=== PATIENT | female | born 1985 | race Caucasian/White ===

== ENCOUNTER 2020-01-28 11:17 | Outpatient (CLI) | payer OTHER, SELFPAY ==
--- NOTE | ~2020-01-28 | XR_ITS ---
EXAMINATION: XR chest 2V 01/28/2020 11:39 INDICATION: Cough, fever and body aches. Shortness of breath. PROCEDURE: 2 view chest COMPARISON: No prior studies for comparison. FINDINGS: The lungs are clear. The cardiomediastinal silhouette is within normal limits. There are no pleural effusions. There is no pneumothorax suspected. IMPRESSION: 1: NO ACUTE CARDIOPULMONARY DISEASE. Reviewed, dictated and finalized at location A.
[2020-01-28 11:34] LABS: Hematocrit 40.2 % (35.0-49.0); Mean Corpuscular HGB Conc 34.8 g/dL (32.0-36.0); Mean Corpuscular Hemoglobin 33.7 pg (27.0-31.0); Mean Corpuscular Volume 96.9 fL (78.0-102.0); Platelet Count Result 117 K/mm3 (150-420); Red Blood Count 4.15 M/mm3 (4.20-5.40); White Blood Count 2.7 K/mm3 (4.8-10.8)
[2020-01-28 11:51] LABS: Influenza Control Valid (Valid)
[2020-01-28 12:01] LABS: Neutrophils Percent Manual 78 % (46-73); Total Cells Counted 100
[2020-01-28 12:02] LABS: Band Neutrophils Percent 4 % (0-6); Basophils Percent Manual 0 % (0-1); Eosinophils Percent Manual 4 % (1-6); Lymphocytes Absolute Manual 0.24 K/mm3 (1.1-4.5); Lymphocytes Percent Manual 9 % (18-44); Monocytes Absolute Manual 0.13 K/mm3 (0.1-0.90); Monocytes Percent Manual 5 % (3-9); Neutrophils Absolute Manual 2.21 K/mm3 (1.7-7.2)
== END 2020-01-28 11:18 | disposition home or self-care (01) ==
PROVIDERS: PCP Internal Medicine; Visit Provider Internal Medicine
DX: R05 Cough (principal); R50.9 Fever, unspecified; R52 Pain, unspecified
CPT/HCPCS: 36415; 71046; 85025; 87804

== ENCOUNTER 2020-06-10 16:59 | Outpatient (RCR) | payer OTHER, SELFPAY ==
--- NOTE | 2020-06-15 13:03 | PTOPEVAL ---
Thank you for referring Laurel Avendaño to [facility]. Please review, sign, date and return this plan of care SHARLA. I agree with and certify that the following plan of care is medically necessary. Referring Physician Date Admitting Provider: Attending Provider: Rayo Melvin MD Referring Provider: *PT Outpatient Evaluation Start: 06/10/20 16:59 Freq: Status: Active Protocol: Document 06/10/20 17:02 VIOLETA (Rec: 06/10/20 17:37 [email or web address] [email or web address]) Therapy Assessment Status Assessment Status Assessment Status Evaluation Evaluation Information Problem Diagnosis low back pain Onset 05/26/20 Subjective Information Pt. reports that 2 weeks ago Query Text:As Reported By Patient/ she bent to package pick up her phone Family and noted pain. 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 She states that over the past 3 days she has felt improvement. She states that she enjoys working out and has avoided working out for several days. She reports that she had xray from local chiropractor. she states that massage did assist with reducing her pain. She states that her goal is to decrease her back pain. Pain Assessment Pain Scale Pain Scale Used Numeric (1 - 10) Self Report Pain Assessment Lower Back Reported Pain Level 3 Pain Description Sharp,Tightness Lowest Pain Intensity 3 Greatest Pain Intensity 7 Pain Score Pain Score 3: Self Report Cervical and Lumbar ROM Lumbar ROM Lumbar Flexion Active Mid Lopez Query Text:Hands to: Lumbar Extension (0-40) 30 Query Text:Active in Degrees Lumbar Lateral Flexion Right (0-40) 35 Query Text:Active in Degrees Lumbar Lateral Flexion Left (0-40) 35 Query Text:Active in Degrees Lower Extremity Muscle Strength Testing General Lower Extremity Strength Gross Lower Extremity Strength bilateral hip flexion 5/5, bilateral hip extension 4+/5, bilateral hip abduction 4+/5, bilateral knee flexion 5/5, bilateral knee extension 5/5, bilateral ankle dorsiflexion 5 /5 Posture Posture Standi
== END 2020-06-19 09:32 | disposition home or self-care (01) ==
LOC: CHSPT 16:59
PROVIDERS: PCP Family Medicine; Visit Provider Family Medicine
DX: M54.5 Low back pain (principal)
CPT/HCPCS: 97014; 97110; 97161; G0283

== ENCOUNTER 2020-07-29 09:28 | Outpatient (CLI) | payer OTHER, SELFPAY ==
[2020-07-30 02:13] LABS: SARS-CoV-2 RNA PCR Negative
== END 2020-07-29 09:29 | disposition home or self-care (01) ==
LOC: CHSLAB 09:31
PROVIDERS: PCP Family Medicine; Visit Provider Family Medicine
DX: Z20.828 Contact with and (suspected) exposure to other viral communicable diseases (principal)
CPT/HCPCS: 87635; C9803; U0003

== ENCOUNTER 2024-05-05 12:35 | Emergency (ER) | payer OTHER, SELFPAY ==
[2024-05-05 12:49] VITALS: BP 147/89; PULSE 87; RESP 16; TEMP 36.6; O2SAT 100
--- NOTE | 2024-05-05 13:50 | ED.URI ---
HPI - URI/Sore Throat General Chief Complaint: Upper Respiratory Infection Stated Complaint: SORE THROAT/COUGH Time Seen by Provider: 05/05/24 12:56 Source: patient and RN notes reviewed Mode of arrival: ambulatory Limitations: no limitations History of Present Illness HPI Narrative: Patient presents today with a 3 day history of cough and sore throat. Denies any additional symptoms to include congestion, rhinorrhea, fever, shortness of breath. Son was diagnosed with strep last week and is finishing antibiotics. Currently rates her pain 4/10 and has been taking cold medicine without relief. No history of asthma or COPD. She is a nonsmoker. Related Data Allergies Allergy/AdvReac Type Severity Reaction Status Date / Time No Known Allergies Allergy Verified 05/05/24 12:47 Review of Systems Review of Systems: CONSTITUTIONAL: Denies body aches, fever, chills, or sweats. EYES: Denies visual changes, redness, or discharge. ENT: Denies rhinorrhea, congestion, or otalgia.+ sore throat CARDIOVASCULAR: Denies chest pain, palpitations, or edema. RESPIRATORY: Denies dyspnea.+ cough GASTROINTESTINAL: Denies abdominal pain, nausea, vomiting, or diarrhea. GENITOURINARY: Denies dysuria or hematuria. SKIN: Denies rash, itching, or wounds. MUSCULOSKELETAL: Denies back pain, joint pain, or myalgia. NEUROLOGIC: Denies headache, numbness, tingling, or weakness. PSYCH: Denies depression or anxiety. [facility] Past Medical History Medical History Low Back Pain Social History Social History Smoking status: Never smoker Alcohol intake: never Substance use: never Lack of Transportation: No Lack of Food: Never True Current Housing: I Have Housing Concerned About Future Housing: No Difficulty Paying Gas/Electric Bills: No Difficulty Paying for Meds: No Currently Unemployed: No Education: Trade/Vocational Certificate Difficulty w/ Childcare or Family Care: No Living arrangements: with family Occupation/Education: occupation Additional occupation/education comments: Message therapist Comments At time of signature, I have reviewed and agree with nursing past medical, surgical, social and family history unless otherwise noted. Please see nursing chart for further information. There is no relevant family history pertinent to the presenting complaint Exam Narrative: GENERAL: Well-appearing, well-nourished, and in no acute distress. HEAD: Normocephalic, atraumatic. EYES: EOMI. No redness or drainage. Conjunctivae normal. ENT: Mucous membranes pink and moist. Nares clear. No rhinorrhea. TMs normal bilaterally. Throat mildly erythematous without edema or exudate. Uvula midline. NECK: Normal AROM. Supple. No lymphadenopathy. CHEST: No respiratory distress. Clear to auscultation. HEART: Regular rate and rhythm. No murmur appreciated. EXTREMITIES: Normal range of motion. No edema. SKIN: Warm, dry, no rash. Capillary refill normal. Normal skin turgor. NEURO: No focal deficits. Alert and oriented x3. Gait steady. PSYCH: Normal affect. No signs of depression or anxiety. Course Course Level of Care: Express Care Visit Vital Signs Vital signs: Vital Signs Temperature 98 F 05/05/24 12:49 Pulse Rate 87 05/05/24 12:49 Respiratory Rate 16 05/05/24 12:49 Blood Pressure 147/89 H 05/05/24 12:49 Pulse Oximetry 100 05/05/24 12:49 Temperature 98 F 05/05/24 12:49 Pulse Rate 87 05/05/24 12:49 Respiratory Rate 16 05/05/24 12:49 Blood Pressure 147/89 H 05/05/24 12:49 Pulse Oximetry 100 05/05/24 12:49 Reviewed MDM - URI/Sore Throat MDM Narrative Medical decision making narrative: Rapid strep negative. Culture pending. Symptoms likely viral in etiology. Discussed [id number] medication use and duration of illness. Prescription for benzonatate
== END 2024-05-05 13:08 | disposition home or self-care (01) ==
PROVIDERS: Emergency Provider Nurse Practitioner
DX: J06.9 Acute upper respiratory infection, unspecified (principal)
CPT/HCPCS: 87081; 87880; 99213; G0463